=== PATIENT | male | born 1965 | race Caucasian/White ===

== ENCOUNTER 2021-05-27 00:48 | Inpatient (IN) | payer SELFPAY ==
[2021-05-27 01:20] LABS: #Basophils 0.1 thou/uL (0.0-0.2); #Eosinphils 0.4 thou/uL (0.0-0.7); #Monocytes 0.4 thou/uL (0.11-0.59); #Neutrophils 2.8 thou/uL (1.40-6.50); %Basophils 2.2 % (0.0-1.0); %Eosinophils 6.6 % (0.0-10.0); %Lymphocytes 34.8 % (21.0-51.0); %Monocytes 6.8 % (0.0-10.0); %Neutrophils 49.6 % (42.0-75.0); Hemoglobin 15.3 g/dL (14.0-18.0); Mean Corpuscular HGB CONC 34.5 g/dL (32.0-36.0); Mean Corpuscular Hemoglobin 36.1 pg (27.0-31.0); Mean Platelet Volume 6.5 fL (7.4-10.4); Platelet Count 194 thou/uL (130-400); RBC Distribution Width 11.6 % (11.5-14.5); Red Blood Cell (RBC) Count 4.25 mill/uL (4.70-6.10); White Blood Cell (WBC) Count 5.7 thou/uL (4.8-10.8)
[2021-05-27] MEDS ORDERED: Boostrix 0.5 ML (Tdap) VIAL ONE (01:33)
[2021-05-27 01:40] LABS: ALT (SGPT) 32 U/L (8-55); AST (SGOT) 70 U/L (5-34); Acetaminophen Less than 6.0 mcg/mL (10.0-30.0); Albumin 3.7 g/dL (3.5-5.0); Alcohol 119 mg/dL (Less than 10); Alkaline Phosphatase 80 U/L (40-110); Anion Gap 14 mmol/L (10-20); BUN (Urea Nitrogen) 6 mg/dL (8.4-25.7); Bilirubin, Total 0.6 mg/dL (0.2-1.2); Calc. Creatinine Clearance 0 mL/min (70-130); Calcium 8.7 mg/dL (7.8-10.44); Carbon Dioxide 20 mmol/L (22-29); Chloride 99 mmol/L (98-107); Globulin 3.7 g/dL (2.4-3.5); Glucose 85 mg/dL (70-105); Magnesium 1.8 mg/dL (1.6-2.6); Protein, Total 7.4 g/dL (6.0-8.3); Salicylate Less than 8.0 mg/dL (15.0-30.0); Sodium 129 mmol/L (136-145)
[2021-05-27 02:15] LABS: Amphetamine Not Detected (NotDetected); Barbiturates Screen Not Detected (NotDetected); Benzodiazepine Screen Not Detected (NotDetected); Cocaine Metabolite Screen Not Detected (NotDetected); Methadone Not Detected (NotDetected); Methamphetamine Not Detected (NotDetected); Opiate Screen Not Detected (NotDetected); Oxycodone Screen Not Detected (NotDetected); Phencyclidine (PCP) Not Detected (NotDetected); THC/Cannabinoid Screen Detected (NotDetected); Tricyclic Screen Not Detected (NotDetected)
[2021-05-27] MEDS ORDERED: Lidocaine 1% (PF) 30 ML VIAL ONE (03:40)
[2021-05-27] MEDS ORDERED: Multivitamins, Adult 10 ML, Thiamine HCl 100 MG, Folic Acid 1 MG in Dextrose 5 %-0.45 %... IV SCH (04:30)
[2021-05-27 08:37] LABS: Free T4 (Free Thyroxine) 0.81 ng/dL (0.70-1.48); Thyroid Stimulating Hormone 1.5175 uIU/mL (0.35-4.94)
[2021-05-27] MEDS ORDERED: Magnevist 469MG/ML 20 ML VIAL ONE (09:49)
[2021-05-27] MEDS ORDERED: Dexamethasone 10 MG/ML VIAL ONE (10:40)
[2021-05-27] MEDS ORDERED: Neomycin-Polymyxin 1 ML AMP ONE ×2 (11:59→12:04)
[2021-05-27] MEDS ORDERED: Bupivacaine PF 0.5% 30 ML VIAL ONE ×2 (11:59→12:04)
[2021-05-27] MEDS ORDERED: Bacitracin Zinc Ointment 30 gm TUBE ONE ×2 (11:59→12:04)
[2021-05-27] MEDS ORDERED: Bupivacaine 0.25% HCL 30 ML VIAL ONE (11:59)
[2021-05-27] MEDS ORDERED: EPINEPHrine 1 MG/ML AMP ONE ×2 (11:59→12:04)
[2021-05-27] MEDS ORDERED: Thrombin 5000 UNITS/5 ML VIAL ONE (12:04)
[2021-05-27] MEDS ORDERED: Fentanyl 250 MCG/5 ML VIAL ONE (12:39)
[2021-05-27 12:41] LABS: INR-International Normal Ratio 1.1; Prothrombin Time 13.7 sec (12.0-14.7)
[2021-05-27 12:42] LABS: PTT 33.1 sec (22.9-36.1)
[2021-05-27] MEDS ORDERED: Ondansetron PF 4 MG/2 ML Vial ONE (12:48)
[2021-05-27] MEDS ORDERED: Lidocaine 1% PF 5 ML VIAL ONE (12:48)
[2021-05-27] MEDS ORDERED: PROPOFOL 200 MG/20 ML VIAL ONE (12:48)
[2021-05-27] MEDS ORDERED: PHENYLEPHRINE-NS 100 MCG/ML 10 ML SYRINGE ONE (12:48)
[2021-05-27] MEDS ORDERED: Rocuronium Bromide 10 MG/ML (10ML VIAL) ONE (12:48)
[2021-05-27 13:12] LABS: SARS-CoV-2 NAA Rapid Test Not Detected (NotDetected)
[2021-05-27] MEDS ORDERED: SUGAMMADEX SODIUM 200 MG/2 ML VIAL ONE (15:29)
[2021-05-27] MEDS ORDERED: Meperidine HCl/PF 25 MG/ML VIAL SLOW IVP PRN (15:35)
[2021-05-27] MEDS ORDERED: Ondansetron HCl/PF 4 MG/2 ML Vial IVP PRN (15:35)
[2021-05-27] MEDS ORDERED: HYDROmorphone 2 MG/ML VIAL SLOW IVP PRN (15:35)
[2021-05-27] MEDS ORDERED: Promethazine HCl 25 MG/ML VIAL IVPB PRN (15:35)
[2021-05-27] MEDS ORDERED: Promethazine HCl 25 MG/ML VIAL IM PRN ×2 (15:35→15:58)
[2021-05-27] MEDS ORDERED: Milk Of Magnesia 30 ML UDCUP PO PRN (15:58)
[2021-05-27] MEDS ORDERED: Promethazine 25 MG TAB PO PRN (15:58)
[2021-05-27] MEDS ORDERED: diphenhydrAMINE 50 MG/ML VIAL IVP PRN (15:58)
[2021-05-27] MEDS ORDERED: Bisacodyl 10 MG SUPP PR PRN (15:58)
[2021-05-27] MEDS ORDERED: HYDROcodone/Acetaminophen 10/325 mg Tablet PO PRN (15:58)
[2021-05-27] MEDS ORDERED: Mag-Al 1200 mg/1200 mg/30 ML UDCUP PO PRN (15:58)
[2021-05-27] MEDS ORDERED: Ondansetron PF 4 MG/2 ML Vial IVP PRN (15:58)
[2021-05-27] MEDS ORDERED: Morphine 2 MG/ML VIAL SLOW IVP PRN (15:58)
[2021-05-27] MEDS ORDERED: Promethazine HCl 12.5 MG SUPP PR PRN (15:58)
[2021-05-27] MEDS ORDERED: Heparin 1,000 UNITS/ML VIAL ONE (16:07)
[2021-05-27] MEDS ORDERED: Fentanyl 100 MCG/2 ML VIAL ONE (16:44)
[2021-05-27] MEDS ORDERED: hydrALAZINE 20 MG/ML VIAL ONE (17:32)
[2021-05-27] MEDS ORDERED: Scopolamine 1.5 mg/72 hour Patch ONE (18:30)
[2021-05-27] MEDS: Scopolamine 1.5 mg/72 hour Patch TD SCH (18:34)
[2021-05-27] MEDS ORDERED: Metoprolol Tartrate 5 MG/5 ML VIAL ONE (18:36)
[2021-05-27] MEDS ORDERED: Morphine 4 MG/ML VIAL ONE ×2 (20:00→21:59)
[2021-05-27] MEDS: Morphine 4 MG/ML VIAL SLOW IVP PRN ×2 (20:01→22:00)
[2021-05-27] MEDS: CEFAZOLIN 2 GM in Premix Bag 1 BAG IVPB SCH (21:00)
[2021-05-27] MEDS: Metoprolol Tartrate 5 MG/5 ML VIAL IVP PRN (21:05)
[2021-05-27] MEDS ORDERED: Diazepam 5 MG TAB PO SCH (23:45)
[2021-05-27] MEDS ORDERED: Diazepam 5 MG TAB PO PRN (23:45)
[2021-05-27] MEDS ORDERED: Thiamine HCl 200 MG/2 ML VIAL IM SCH (23:45)
[2021-05-28] MEDS: tiZANidine HCl 4 MG TAB PO PRN ×3 (00:21→14:02)
[2021-05-28] MEDS: HYDROcodone/Acetaminophen 10/325 mg Tablet PO PRN ×4 (00:21→21:23)
[2021-05-28] MEDS: Sodium Chloride 0.9% 1,000 ML IV SCH ×2 (00:21→17:08)
[2021-05-28] MEDS: Morphine 4 MG/ML VIAL SLOW IVP PRN (00:22)
[2021-05-28 00:35] LABS: ALT (SGPT) 25 U/L (8-55); AST (SGOT) 54 U/L (5-34); Albumin 3.6 g/dL (3.5-5.0); Alkaline Phosphatase 79 U/L (40-110); Anion Gap 13 mmol/L (10-20); BUN (Urea Nitrogen) 8 mg/dL (8.4-25.7); Bilirubin, Direct 0.5 mg/dL (0.1-0.3); Calc. Creatinine Clearance 0 mL/min (70-130); Calcium 8.8 mg/dL (7.8-10.44); Carbon Dioxide 21 mmol/L (22-29); Chloride 102 mmol/L (98-107); Globulin 3.5 g/dL (2.4-3.5); Glucose 124 mg/dL (70-105); Potassium 4.2 mmol/L (3.5-5.1); Protein, Total 7.1 g/dL (6.0-8.3); Sodium 132 mmol/L (136-145)
[2021-05-28 00:53] LABS: Syphilis Antibody Nonreactive (Nonreactive); Syphilis Antibody Index 0.04 S/CO (<1.00 Non-Reactive)
[2021-05-28] MEDS ORDERED: Diazepam 5 MG TAB PO PRN (04:00)
[2021-05-28] MEDS: CEFAZOLIN 2 GM in Premix Bag 1 BAG IVPB SCH ×2 (05:30→14:03)
[2021-05-28] MEDS: Tamsulosin HCl 0.4 MG CAP PO SCH (05:30)
[2021-05-28 05:38] LABS: #Lymphocytes 1.2 thou/uL (1.20-3.40); #Monocytes 0.8 thou/uL (0.11-0.59); #Neutrophils 6.7 thou/uL (1.40-6.50); %Basophils 0.3 % (0.0-1.0); %Lymphocytes 13.7 % (21.0-51.0); %Monocytes 9.7 % (0.0-10.0); %Neutrophils 76.3 % (42.0-75.0); Hemoglobin 14.2 g/dL (14.0-18.0); Mean Corpuscular HGB CONC 33.6 g/dL (32.0-36.0); Mean Corpuscular Hemoglobin 35.8 pg (27.0-31.0); Mean Platelet Volume 7.3 fL (7.4-10.4); Platelet Count 172 thou/uL (130-400); RBC Distribution Width 11.8 % (11.5-14.5); Red Blood Cell (RBC) Count 3.97 mill/uL (4.70-6.10); White Blood Cell (WBC) Count 8.7 thou/uL (4.8-10.8)
[2021-05-28 05:45] VITALS: BMI 22.2
[2021-05-28 05:55] LABS: Anion Gap 11 mmol/L (10-20); BUN (Urea Nitrogen) 8 mg/dL (8.4-25.7); Calc. Creatinine Clearance 127 mL/min (70-130); Calcium 8.5 mg/dL (7.8-10.44); Carbon Dioxide 23 mmol/L (22-29); Chloride 103 mmol/L (98-107); Glucose 107 mg/dL (70-105); Potassium 4.2 mmol/L (3.5-5.1); Sodium 133 mmol/L (136-145)
[2021-05-28] MEDS: Multivitamin W/ Minerals 1 TAB PO SCH (08:22)
[2021-05-28] MEDS: Folic Acid 1 MG TAB PO SCH (08:22)
[2021-05-28] MEDS: Magnesium Oxide 400 MG TAB PO SCH (08:22)
[2021-05-28] MEDS: Thiamine 100 MG TAB PO SCH (08:22)
[2021-05-28 11:13] LABS: Amphetamine Not Detected (NotDetected); Barbiturates Screen Not Detected (NotDetected); Benzodiazepine Screen Detected (NotDetected); Cocaine Metabolite Screen Not Detected (NotDetected); Methadone Not Detected (NotDetected); Methamphetamine Not Detected (NotDetected); Opiate Screen Detected (NotDetected); Oxycodone Screen Not Detected (NotDetected); Phencyclidine (PCP) Not Detected (NotDetected); THC/Cannabinoid Screen Detected (NotDetected); Tricyclic Screen Not Detected (NotDetected)
[2021-05-28] MEDS ORDERED: Nicotine 14 MG PATCH TD PRN (11:36)
[2021-05-28 16:47] LABS: HIV (1/2) Antibody/Antigen Non-Reactive (NonReactive); HIV 1/2 INDEX 0.13 S/CO (<1.00)
[2021-05-28 16:52] LABS: Hep C IgG Ab Reflex HepC Qnt (NonReactive); Hep C Index 13.31 S/CO (0-0.79)
[2021-05-29] MEDS: Sodium Chloride 0.9% 1,000 ML IV SCH ×2 (00:40→13:37)
[2021-05-29] MEDS: tiZANidine HCl 4 MG TAB PO PRN ×2 (02:19→09:04)
[2021-05-29 05:32] LABS: #Basophils 0.1 thou/uL (0.0-0.2); #Eosinphils 0.1 thou/uL (0.0-0.7); #Lymphocytes 1.5 thou/uL (1.20-3.40); #Monocytes 0.6 thou/uL (0.11-0.59); %Basophils 1.1 % (0.0-1.0); %Eosinophils 0.8 % (0.0-10.0); %Lymphocytes 24.1 % (21.0-51.0); %Neutrophils 63.9 % (42.0-75.0); Hemoglobin 14.8 g/dL (14.0-18.0); Mean Corpuscular HGB CONC 33.2 g/dL (32.0-36.0); Mean Corpuscular Hemoglobin 35.5 pg (27.0-31.0); Mean Platelet Volume 7.7 fL (7.4-10.4); Platelet Count 166 thou/uL (130-400); RBC Distribution Width 11.9 % (11.5-14.5); Red Blood Cell (RBC) Count 4.18 mill/uL (4.70-6.10); White Blood Cell (WBC) Count 6.3 thou/uL (4.8-10.8)
[2021-05-29] MEDS: Tamsulosin HCl 0.4 MG CAP PO SCH (05:51)
[2021-05-29 08:28] LABS: ALT (SGPT) 23 U/L (8-55); AST (SGOT) 65 U/L (5-34); Albumin 3.3 g/dL (3.5-5.0); Alkaline Phosphatase 75 U/L (40-110); Anion Gap 14 mmol/L (10-20); BUN (Urea Nitrogen) 8 mg/dL (8.4-25.7); Bilirubin, Total 1.1 mg/dL (0.2-1.2); Calc. Creatinine Clearance 110 mL/min (70-130); Calcium 9.1 mg/dL (7.8-10.44); Carbon Dioxide 25 mmol/L (22-29); Chloride 101 mmol/L (98-107); Globulin 4.1 g/dL (2.4-3.5); Glucose 90 mg/dL (70-105); Potassium 4.5 mmol/L (3.5-5.1); Protein, Total 7.4 g/dL (6.0-8.3); Sodium 135 mmol/L (136-145)
[2021-05-29] MEDS: Multivitamin W/ Minerals 1 TAB PO SCH (09:04)
[2021-05-29] MEDS: Magnesium Oxide 400 MG TAB PO SCH (09:04)
[2021-05-29] MEDS: Thiamine 100 MG TAB PO SCH (09:04)
[2021-05-29] MEDS: Folic Acid 1 MG TAB PO SCH (09:04)
[2021-05-29] MEDS: HYDROcodone/Acetaminophen 10/325 mg Tablet PO PRN ×2 (13:32→19:18)
[2021-05-29 14:45] LABS: Magnesium 1.8 mg/dL (1.6-2.6); Phosphorus 2.8 mg/dL (2.3-4.7)
[2021-05-29 15:15] LABS: Fungus Stain Final report (.)
[2021-05-30] MEDS: Metoprolol Tartrate 5 MG/5 ML VIAL IVP PRN ×3 (00:01→08:37)
[2021-05-30] MEDS: HYDROcodone/Acetaminophen 10/325 mg Tablet PO PRN ×3 (03:32→19:54)
[2021-05-30] MEDS: Sodium Chloride 0.9% 1,000 ML IV SCH ×2 (04:52→19:51)
[2021-05-30] MEDS: Tamsulosin HCl 0.4 MG CAP PO SCH (05:33)
[2021-05-30 06:27] LABS: ALT (SGPT) 25 U/L (8-55); AST (SGOT) 55 U/L (5-34); Albumin 3.5 g/dL (3.5-5.0); Alkaline Phosphatase 77 U/L (40-110); Anion Gap 11 mmol/L (10-20); BUN (Urea Nitrogen) 7 mg/dL (8.4-25.7); Bilirubin, Total 1.3 mg/dL (0.2-1.2); Calc. Creatinine Clearance 127 mL/min (70-130); Calcium 9.1 mg/dL (7.8-10.44); Carbon Dioxide 25 mmol/L (22-29); Chloride 102 mmol/L (98-107); Globulin 3.4 g/dL (2.4-3.5); Glucose 97 mg/dL (70-105); Potassium 3.7 mmol/L (3.5-5.1); Protein, Total 6.9 g/dL (6.0-8.3); Sodium 134 mmol/L (136-145)
[2021-05-30] MEDS: diphenhydrAMINE 25 MG CAP PO PRN ×2 (08:37→19:54)
[2021-05-30] MEDS: Magnesium Oxide 400 MG TAB PO SCH (08:37)
[2021-05-30] MEDS: Multivitamin W/ Minerals 1 TAB PO SCH (08:37)
[2021-05-30] MEDS: Thiamine 100 MG TAB PO SCH (08:37)
[2021-05-30] MEDS: Folic Acid 1 MG TAB PO SCH (08:37)
[2021-05-30] MEDS ORDERED: Lorazepam 0.5 MG TAB PO PRN (09:27)
[2021-05-30] MEDS ORDERED: Amlodipine 5 MG TAB PO SCH (13:45)
[2021-05-30] MEDS: Gabapentin 300 MG CAP PO SCH ×2 (14:15→19:53)
[2021-05-30] MEDS: Scopolamine 1.5 mg/72 hour Patch TD SCH (15:40)
[2021-05-30] MEDS: Polyethylene Glycol 3350 17 GM Packet PO SCH (19:54)
[2021-05-31] MEDS: HYDROcodone/Acetaminophen 10/325 mg Tablet PO PRN ×4 (02:07→23:45)
[2021-05-31] MEDS: Tamsulosin HCl 0.4 MG CAP PO SCH (05:22)
[2021-05-31 06:23] LABS: ALT (SGPT) 33 U/L (8-55); AST (SGOT) 55 U/L (5-34); Albumin 3.6 g/dL (3.5-5.0); Alkaline Phosphatase 79 U/L (40-110); Anion Gap 11 mmol/L (10-20); BUN (Urea Nitrogen) 8 mg/dL (8.4-25.7); Bilirubin, Total 1.1 mg/dL (0.2-1.2); Calc. Creatinine Clearance 125 mL/min (70-130); Carbon Dioxide 26 mmol/L (22-29); Cardiac Risk 4.3 (Less than 4.5); Chloride 102 mmol/L (98-107); Cholesterol 124 mg/dl (< 200 Desired); Globulin 3.5 g/dL (2.4-3.5); Glucose 95 mg/dL (70-105); HDL Cholesterol 29 mg/dL (>60 Neg Risk); LDL Cholesterol, Calculated 77 mg/dL; Potassium 3.6 mmol/L (3.5-5.1); Protein, Total 7.1 g/dL (6.0-8.3); Sodium 135 mmol/L (136-145); Triglycerides 91 mg/dL (Less than 150)
[2021-05-31] MEDS: Multivitamin W/ Minerals 1 TAB PO SCH (08:08)
[2021-05-31] MEDS: Magnesium Oxide 400 MG TAB PO SCH (08:08)
[2021-05-31] MEDS: Amlodipine 5 MG TAB PO SCH (08:08)
[2021-05-31] MEDS: Thiamine 100 MG TAB PO SCH (08:08)
[2021-05-31] MEDS: Folic Acid 1 MG TAB PO SCH (08:09)
[2021-05-31] MEDS: Gabapentin 300 MG CAP PO SCH ×3 (08:09→19:52)
[2021-05-31] MEDS: Polyethylene Glycol 3350 17 GM Packet PO SCH ×2 (08:09→19:52)
[2021-05-31] MEDS: Sodium Chloride 0.9% 1,000 ML IV SCH ×2 (10:05→19:21)
[2021-05-31] MEDS ORDERED: Losartan 25 MG TAB PO SCH (12:00)
[2021-05-31 12:11] LABS: HCV log10 6.809 (.); Hep C PCR-Quant 6440000 IU/mL (.)
[2021-05-31] MEDS: diphenhydrAMINE 25 MG CAP PO PRN (16:16)
[2021-05-31 20:14] LABS: QuantiFERON-TB Gold Plus Negative (Negative)
[2021-06-01] MEDS: Tamsulosin HCl 0.4 MG CAP PO SCH (06:06)
[2021-06-01] MEDS: HYDROcodone/Acetaminophen 10/325 mg Tablet PO PRN ×3 (06:06→21:36)
[2021-06-01 06:27] LABS: ALT (SGPT) 40 U/L (8-55); AST (SGOT) 61 U/L (5-34); Albumin 3.9 g/dL (3.5-5.0); Alkaline Phosphatase 94 U/L (40-110); Anion Gap 11 mmol/L (10-20); BUN (Urea Nitrogen) 8 mg/dL (8.4-25.7); Calc. Creatinine Clearance 125 mL/min (70-130); Calcium 9.7 mg/dL (7.8-10.44); Carbon Dioxide 27 mmol/L (22-29); Chloride 102 mmol/L (98-107); Globulin 3.9 g/dL (2.4-3.5); Glucose 91 mg/dL (70-105); Potassium 3.9 mmol/L (3.5-5.1); Protein, Total 7.8 g/dL (6.0-8.3); Sodium 136 mmol/L (136-145)
[2021-06-01] MEDS ORDERED: Nicotine 21 MG PATCH TD SCH (09:00)
[2021-06-01] MEDS: Thiamine 100 MG TAB PO SCH (09:36)
[2021-06-01] MEDS: Multivitamin W/ Minerals 1 TAB PO SCH (09:36)
[2021-06-01] MEDS: Folic Acid 1 MG TAB PO SCH (09:36)
[2021-06-01] MEDS: Magnesium Oxide 400 MG TAB PO SCH (09:36)
[2021-06-01] MEDS: Losartan 25 MG TAB PO SCH (09:37)
[2021-06-01] MEDS: Amlodipine 5 MG TAB PO SCH (09:37)
[2021-06-01] MEDS: Polyethylene Glycol 3350 17 GM Packet PO SCH ×2 (09:38→21:36)
[2021-06-01] MEDS: Gabapentin 300 MG CAP PO SCH ×3 (09:45→21:35)
[2021-06-01] MEDS: Sodium Chloride 0.9% 1,000 ML IV SCH (10:44)
[2021-06-01] MEDS: cefTRIAXone\\ROCEPHIN 2 GM in Sodium Chloride 0.9% 100 ML IVPB SCH (15:42)
[2021-06-01] MEDS: diphenhydrAMINE 25 MG CAP PO PRN (21:35)
[2021-06-01] MEDS: tiZANidine HCl 4 MG TAB PO PRN (21:41)
[2021-06-02] MEDS: Sodium Chloride 0.9% 1,000 ML IV SCH ×2 (02:15→14:09)
[2021-06-02] MEDS: Tamsulosin HCl 0.4 MG CAP PO SCH (05:53)
[2021-06-02] MEDS: HYDROcodone/Acetaminophen 10/325 mg Tablet PO PRN ×3 (05:54→20:06)
[2021-06-02 06:02] LABS: ALT (SGPT) 47 U/L (8-55); AST (SGOT) 68 U/L (5-34); Albumin 3.7 g/dL (3.5-5.0); Alkaline Phosphatase 92 U/L (40-110); Anion Gap 12 mmol/L (10-20); BUN (Urea Nitrogen) 9 mg/dL (8.4-25.7); Bilirubin, Total 0.7 mg/dL (0.2-1.2); Calc. Creatinine Clearance 118 mL/min (70-130); Calcium 9.5 mg/dL (7.8-10.44); Carbon Dioxide 23 mmol/L (22-29); Chloride 104 mmol/L (98-107); Globulin 3.7 g/dL (2.4-3.5); Glucose 97 mg/dL (70-105); Potassium 3.9 mmol/L (3.5-5.1); Protein, Total 7.4 g/dL (6.0-8.3); Sodium 135 mmol/L (136-145)
[2021-06-02] MEDS: Gabapentin 300 MG CAP PO SCH ×3 (09:07→20:06)
[2021-06-02] MEDS: Losartan 25 MG TAB PO SCH (09:08)
[2021-06-02] MEDS: Multivitamin W/ Minerals 1 TAB PO SCH (09:08)
[2021-06-02] MEDS: Amlodipine 5 MG TAB PO SCH (09:08)
[2021-06-02] MEDS: Folic Acid 1 MG TAB PO SCH (09:08)
[2021-06-02] MEDS: Magnesium Oxide 400 MG TAB PO SCH (09:08)
[2021-06-02] MEDS: Thiamine 100 MG TAB PO SCH (09:08)
[2021-06-02] MEDS: Polyethylene Glycol 3350 17 GM Packet PO SCH ×2 (09:09→20:09)
[2021-06-02] MEDS: Scopolamine 1.5 mg/72 hour Patch TD SCH (15:44)
[2021-06-02] MEDS: cefTRIAXone\\ROCEPHIN 2 GM in Sodium Chloride 0.9% 100 ML IVPB SCH (15:45)
[2021-06-03] MEDS: HYDROcodone/Acetaminophen 10/325 mg Tablet PO PRN ×4 (02:20→20:21)
[2021-06-03] MEDS: Sodium Chloride 0.9% 1,000 ML IV SCH ×3 (02:43→23:02)
[2021-06-03] MEDS: Tamsulosin HCl 0.4 MG CAP PO SCH (05:37)
[2021-06-03] MEDS: Polyethylene Glycol 3350 17 GM Packet PO SCH ×2 (08:51→20:22)
[2021-06-03] MEDS: Thiamine 100 MG TAB PO SCH (08:59)
[2021-06-03] MEDS: Gabapentin 300 MG CAP PO SCH ×3 (08:59→20:21)
[2021-06-03] MEDS: Amlodipine 5 MG TAB PO SCH (09:00)
[2021-06-03] MEDS: Losartan 25 MG TAB PO SCH (09:00)
[2021-06-03] MEDS: Multivitamin W/ Minerals 1 TAB PO SCH (09:00)
[2021-06-03] MEDS: Magnesium Oxide 400 MG TAB PO SCH (09:00)
[2021-06-03] MEDS: Folic Acid 1 MG TAB PO SCH (09:00)
[2021-06-03] MEDS ORDERED: Losartan 25 MG TAB PO SCH (12:45)
[2021-06-03] MEDS: cefTRIAXone\\ROCEPHIN 2 GM in Sodium Chloride 0.9% 100 ML IVPB SCH (15:38)
[2021-06-03] MEDS: tiZANidine HCl 4 MG TAB PO PRN (20:22)
[2021-06-03] MEDS: diphenhydrAMINE 25 MG CAP PO PRN (20:25)
[2021-06-04] MEDS: HYDROcodone/Acetaminophen 10/325 mg Tablet PO PRN (03:33)
[2021-06-04] MEDS: Tamsulosin HCl 0.4 MG CAP PO SCH (05:43)
[2021-06-04] MEDS: Magnesium Oxide 400 MG TAB PO SCH (08:46)
[2021-06-04] MEDS: Losartan 25 MG TAB PO SCH (08:46)
[2021-06-04] MEDS: Gabapentin 300 MG CAP PO SCH ×3 (08:46→20:50)
[2021-06-04] MEDS: Folic Acid 1 MG TAB PO SCH (08:47)
[2021-06-04] MEDS: Multivitamin W/ Minerals 1 TAB PO SCH (08:47)
[2021-06-04] MEDS: Thiamine 100 MG TAB PO SCH (08:47)
[2021-06-04] MEDS ORDERED: Amlodipine 10 MG TAB PO SCH (09:00)
[2021-06-04] MEDS: Polyethylene Glycol 3350 17 GM Packet PO SCH ×2 (11:40→20:49)
[2021-06-04] MEDS: cefTRIAXone\\ROCEPHIN 2 GM in Sodium Chloride 0.9% 100 ML IVPB SCH (15:09)
[2021-06-04] MEDS: tiZANidine HCl 4 MG TAB PO PRN (18:22)
[2021-06-04] MEDS: Sodium Chloride 0.9% 1,000 ML IV SCH (20:49)
[2021-06-04] MEDS: diphenhydrAMINE 25 MG CAP PO PRN (20:57)
[2021-06-05] MEDS: tiZANidine HCl 4 MG TAB PO PRN (01:18)
[2021-06-05] MEDS: Tamsulosin HCl 0.4 MG CAP PO SCH (05:03)
[2021-06-05] MEDS: HYDROcodone/Acetaminophen 10/325 mg Tablet PO PRN (06:58)
[2021-06-05] MEDS: Magnesium Oxide 400 MG TAB PO SCH (09:29)
[2021-06-05] MEDS: Thiamine 100 MG TAB PO SCH (09:29)
[2021-06-05] MEDS: Losartan 25 MG TAB PO SCH (09:29)
[2021-06-05] MEDS: Multivitamin W/ Minerals 1 TAB PO SCH (09:30)
[2021-06-05] MEDS: Gabapentin 300 MG CAP PO SCH ×3 (09:30→21:55)
[2021-06-05] MEDS: Folic Acid 1 MG TAB PO SCH (09:30)
[2021-06-05] MEDS: Polyethylene Glycol 3350 17 GM Packet PO SCH ×2 (09:34→21:57)
[2021-06-05] MEDS ORDERED: Amlodipine 10 MG TAB PO SCH ×2 (10:31→12:15)
[2021-06-05] MEDS: Sodium Chloride 0.9% 1,000 ML IV SCH (11:54)
[2021-06-05] MEDS: HYDROcodone/Acetaminophen 7.5/325 mg Tablet PO PRN ×3 (13:35→21:59)
[2021-06-05] MEDS: cefTRIAXone\\ROCEPHIN 2 GM in Sodium Chloride 0.9% 100 ML IVPB SCH (15:27)
[2021-06-05] MEDS: Scopolamine 1.5 mg/72 hour Patch TD SCH (15:27)
[2021-06-05] MEDS: diphenhydrAMINE 25 MG CAP PO PRN (18:15)
[2021-06-06] MEDS: Sodium Chloride 0.9% 1,000 ML IV SCH ×2 (01:03→10:49)
[2021-06-06] MEDS: HYDROcodone/Acetaminophen 10/325 mg Tablet PO PRN ×2 (02:49→11:38)
[2021-06-06] MEDS: Tamsulosin HCl 0.4 MG CAP PO SCH (05:48)
[2021-06-06] MEDS: Gabapentin 300 MG CAP PO SCH ×2 (08:38→15:07)
[2021-06-06] MEDS: Losartan 25 MG TAB PO SCH (08:39)
[2021-06-06] MEDS: Thiamine 100 MG TAB PO SCH (08:40)
[2021-06-06] MEDS: Folic Acid 1 MG TAB PO SCH (08:40)
[2021-06-06] MEDS: Multivitamin W/ Minerals 1 TAB PO SCH (08:41)
[2021-06-06] MEDS: Magnesium Oxide 400 MG TAB PO SCH (08:41)
[2021-06-06] MEDS: Polyethylene Glycol 3350 17 GM Packet PO SCH (08:41)
[2021-06-06] MEDS: diphenhydrAMINE 25 MG CAP PO PRN (08:46)
[2021-06-06] MEDS ORDERED: Amlodipine 10 MG TAB PO SCH (09:00)
[2021-06-06] MEDS: cefTRIAXone\\ROCEPHIN 2 GM in Sodium Chloride 0.9% 100 ML IVPB SCH (15:07)
[2021-06-06 16:00] VITALS: BP 128/76; TEMP 97.8
[2021-06-26 07:15] LABS: Fungus Culture Final report (.)
== END 2021-06-06 15:55 | disposition home or self-care (01) | DRG 28 ==
LOC: ERS 00:48 → SDC 12:22 → SURG B 15:58
PROVIDERS: ADMIT Neurological Surgery; ATTEND Internal Medicine
PROC: 0RG1070 Fusion of Cervical Vertebral Joint with Autologous Tissue Substitute, Anterior Approach, Anterior Column, Open Approach (ICD-10-PCS; principal; 2021-05-27)
PROC: 01N10ZZ Release Cervical Nerve, Open Approach (ICD-10-PCS; 2021-05-27)
PROC: 02HV33Z Insertion of Infusion Device into Superior Vena Cava, Percutaneous Approach (ICD-10-PCS; 2021-06-03)
PROC: B548ZZA Ultrasonography of Superior Vena Cava, Guidance (ICD-10-PCS; 2021-06-03)
DX: S14.154A Other incomplete lesion at C4 level of cervical spinal cord, initial encounter (principal); G95.19 Other vascular myelopathies; G06.1 Intraspinal abscess and granuloma; G95.29 Other cord compression; E87.1 Hypo-osmolality and hyponatremia; W06.XXXA Fall from bed, initial encounter; F17.210 Nicotine dependence, cigarettes, uncomplicated; Z20.822 Contact with and (suspected) exposure to COVID-19; D64.9 Anemia, unspecified; F12.90 Cannabis use, unspecified, uncomplicated; F10.20 Alcohol dependence, uncomplicated; G31.89 Other specified degenerative diseases of nervous system; K59.00 Constipation, unspecified; B00.9 Herpesviral infection, unspecified; R00.1 Bradycardia, unspecified
CPT/HCPCS: 12011; 36415; 36569; 70450; 72125; 72131; 72156; 76000; 80053; 80061; 80306; 80307; 82248; 83735; 84100; 84439; 84443; 85025; 85610; 85730; 86480; 86780; 86803; 87070; 87102; 87116; 87205; 87206; 87389; 87522; 88307; 88311; 88312; 90471; 90715; 93005; 93010; 96365; 96375; A9579; C1713; C1751; C1768; G0390; J0171; J0360; J0690; J0696; J1100; J1200; J1644; J2001; J2270; J2405; J2704; J3010; J3370; J3411; J3475; J3490; J7042; S0020; U0002; U0005

== ENCOUNTER 2021-09-02 12:43 | Outpatient (CLI) | payer OTHER | END 2021-09-02 12:44 | disposition home or self-care (01) | LOC: TBSIIMAG 12:43 | PROVIDERS: ATTEND Neurological Surgery | DX: S14.109D Unspecified injury at unspecified level of cervical spinal cord, subsequent encounter (principal); G96.198 Other disorders of meninges, not elsewhere classified; G95.20 Unspecified cord compression; M47.812 Spondylosis without myelopathy or radiculopathy, cervical region; Z98.890 Other specified postprocedural states | CPT/HCPCS: 72040 ==